=== PATIENT | female | born 1965 | race Asian ===

== ENCOUNTER 2018-08-16 13:34 | Emergency (ER) | payer OTHER ==
[~2018-08-16] VITALS: Ht 157.5 cm; Wt 49.0 kg
[2018-08-16 13:41] VITALS: Ht 157.5 cm; Wt 49.0 kg
[2018-08-16 15:36] VITALS: BP 121/78
== END 2018-08-16 15:36 | disposition home or self-care (01) ==
LOC: ED 13:34
DX: M54.2 Cervicalgia (principal); Z88.0 Allergy status to penicillin; Z98.890 Other specified postprocedural states

== ENCOUNTER 2019-02-20 19:19 | Emergency (ER) | payer OTHER ==
[~2019-02-20] VITALS: Ht 160 cm; Wt 47.3 kg
[2019-02-20 19:41] VITALS: Ht 160 cm; Wt 47.3 kg
[2019-02-20 20:48] LABS: BASOPHIL % 0.3 % (0-2); CALCIUM 8.4 mg/dL (8.5-10.1); CARBON DIOXIDE 22.4 mmol/L (21-32); CHLORIDE SERUM 99 mmol/L (98-107); CREATININE SERUM 0.7 mg/dL (0.6-1.0); GFR1 > 60 mL/min; GLUCOSE SERUM 108 mg/dL (74-106); PLATELET COUNT 245 x10^3mcL (130-400); POTASSIUM SERUM 3.9 mmol/L (3.5-5.1); RED CELL DISTRIBUTION WIDTH 14.1 % (11.5-14.5); SODIUM SERUM 135 mmol/L (136-145)
[2019-02-20 20:53] LABS: ALBUMIN 3.7 g/dL (3.4-5.0); ALKALINE PHOSPHATASE 68 U/L (46-116); ALT/SGPT 21 U/L (14-59); AST/SGOT 21 U/L (15-37); BILIRUBIN TOTAL 0.6 mg/dL (0.20-1.00); LIPASE 157 IU/L (73-393); TOTAL PROTEIN, SERUM 7.4 g/dL (6.4-8.2)
[2019-02-20 21:44] LABS: UA SPECIFIC GRAVITY 1.025 (1.005-1.035); microscopic required? YES; urine erythrocyte TRACE (NEGATIVE)
[2019-02-20 21:54] LABS: AMPHETAMINE QUAL UR NONE DETECTED (See below)
[2019-02-20 23:42] VITALS: BP 107/61
== END 2019-02-20 23:42 | disposition home or self-care (01) ==
LOC: ED 19:19
PROVIDERS: Emergency Medicine
DX: R11.10 Vomiting, unspecified (principal); R10.9 Unspecified abdominal pain; R82.4 Acetonuria; E78.00 Pure hypercholesterolemia, unspecified; Z98.890 Other specified postprocedural states; Z88.0 Allergy status to penicillin
CPT/HCPCS: J0500; J1885; J2405; J3490; J7030; Q0092